=== PATIENT | female | born 1985 | race Caucasian/White ===

== ENCOUNTER 2019-11-12 23:22 | Emergency (ER) | payer OTHER ==
[~2019-11-12] VITALS: Ht 167.6 cm; Wt 48.0 kg
--- NOTE | 2019-11-12 23:56 | EKG ---
[address] [address] Test Date: 2019-11-12 Test Time: 23:49:58 Pat Name: EMMETT JUARES Department: Room: Gender: F Hims Coder: : [id number] Requested By: MEGHAN CULP Order Number: [id number] Reading MD: Measurements Intervals [place] Rate: 108 P: 90 AR: 126 QRS: 79 QRSD: 86 T: 63 QT: 350 QTc: 473 Interpretive Statements SINUS TACHYCARDIA NO SPECIFIC ECG ABNORMALITIES RI6.01 No previous ECG available for comparison
[2019-11-13 00:15] LABS: BASO # 0.1 x10^3/uL (0.0-0.2); BASO % 1 % (0-3); EOS # 0.4 x10^3/uL (0.0-0.7); EOS % 5 % (0-3); HEMATOCRIT 33.3 % (36.0-47.0); HEMOGLOBIN 11.1 g/dL (12.0-15.5); LYMPH # 2.4 x10^3/uL (1.0-4.8); LYMPH % 28 % (24-48); MEAN CORPUSCULAR HEMOGLOBIN 28 pg (25-35); MEAN CORPUSCULAR HGB CONC 33 g/dL (31-37); MEAN CORPUSCULAR VOLUME 83 fL (79-100); MONO # 0.5 x10^3/uL (0.0-1.1); MONO % 5 % (0-9); NEUT # 5.1 x10^3uL (1.8-7.7); NEUT % 61 % (31-73); PLATELET COUNT 330 x10^3/uL (140-400); RED BLOOD COUNT 4.02 x10^6/uL (3.50-5.40); WHITE BLOOD COUNT 8.4 x10^3/uL (4.0-11.0)
[2019-11-13 00:20] LABS: PREG TEST PT QUAL NEGATIVE (NEG)
[2019-11-13 00:21] LABS: CREATININE 0.7 mg/dL (0.6-1.0); POTASSIUM 3.6 mmol/L (3.5-5.1)
[2019-11-13 00:26] LABS: ALBUMIN 3.9 g/dL (3.4-5.0); ALBUMIN/GLOBULIN RATIO 1.4 (1.0-1.7); TOTAL BILIRUBIN 0.3 mg/dL (0.2-1.0); TOTAL PROTEIN 6.7 g/dL (6.4-8.2)
--- NOTE | 2019-11-13 00:37 | PHYS DOC ---
Past History Past Medical History: Endometriosis, Other Additional Past Medical Histor: endometriosis, tachycardia Additional Past Surgical Histo: endoscopic ablasions Alcohol Use: None Adult General Chief Complaint Chief Complaint: ABDOMINAL PAIN HPI HPI Patient is a 33-year-old female who presents via EMS after reportedly having a syncopal episode. EMS reports that they were informed the patient has syncopal episodes whenever she is in severe pain. Patient has history of endometriosis and frequently has bouts of pain. She indicates that she does not have a mural painter or primary care provider because her care had taken her off of her health plan. Patient rates her pain to be a 10 out of 10. EMS did give patient a total of 100 g of fentanyl while in route.[] Review of Systems Review of Systems Constitutional: Denies fever or chills [] Respiratory: Denies cough or shortness of breath [] Cardiovascular: No additional information not addressed in HPI [] GI: Positive lower abdominal pain without vomiting or diarrhea [] : Denies dysuria or hematuria [] Neurologic: Positive headache without focal weakness or sensory changes [] All other systems were reviewed and found to be within normal limits, except as documented in this note. Allergies Allergies Allergies Coded Allergies Type Severity Reaction Last Updated Verified No Known Drug Allergies 11/12/19 No Physical Exam Physical Exam Constitutional: Well developed, well nourished, appears uncomfortable, non-toxic appearance. Report of pain is far out of proportion to physical findings. [] HENT: Normocephalic, with approximately 2 similar linear laceration noted to the forehead right at the line of the scalp, extending into subcutaneous tissue. Laceration is linear. bilateral external ears normal, oropharynx moist, no oral exudates, nose normal. [] Eyes: PERRLA, EOMI, conjunctiva normal, no discharge. [] Neck: The patient and c-collar upon arrival. [] Cardiovascular:Heart rate regular rhythm, no murmur [] Lungs & Thorax: Bilateral breath sounds clear to auscultation [] Abdomen: Bowel sounds normal, soft, with lower abdominal reported tenderness on palpation. [] Skin: Warm, dry, no erythema, no rash. [] Extremities: No tenderness, no cyanosis, no clubbing, ROM intact, no edema. [] Neurologic: Alert and oriented X 3, no focal deficits noted. [] Current Patient Data Vital Signs Vital Signs Date Time Temp Pulse Resp B/P (MAP) Pulse Ox O2 Delivery O2 Flow Rate FiO2 11/13/19 00:29 98.2 97 20 115/64 (81) 97 Room Air Lab Results Laboratory Tests Test 11/12/19 23:58 11/13/19 00:04 White Blood Count 8.4 x10^3/uL (4.0-11.0) Red Blood Count 4.02 x10^6/uL (3.50-5.40) Hemoglobin 11.1 g/dL (12.0-15.5) L Hematocrit 33.3 % (36.0-47.0) L Mean Corpuscular Volume 83 fL (79-100) Mean Corpuscular Hemoglobin 28 pg (25-35) Mean Corpuscular Hemoglobin Concent 33 g/dL (31-37) Red Cell Distribution Width 13.0 % (11.5-14.5) Platelet Count 330 x10^3/uL (140-400) Neutrophils (%) (Auto) 61 % (31-73) Lymphocytes (%) (Auto) 28 % (24-48) Monocytes (%) (Auto) 5 % (0-9) Eosinophils (%) (Auto) 5 % (0-3) H Basophils (%) (Auto) 1 % (0-3) Neutrophils # (Auto) 5.1 x10^3uL (1.8-7.7) Lymphocytes # (Auto) 2.4 x10^3/uL (1.0-4.8) Monocytes # (Auto) 0.5 x10^3/uL (0.0-1.1) Eosinophils # (Auto) 0.4 x10^3/uL (0.0-0.7) Basophils # (Auto) 0.1 x10^3/uL (0.0-0.2) Sodium Level 141 mmol/L (136-145) Potassium Level 3.6 mmol/L (3.5-5.1) Chloride Level 107 mmol/L (98-107) Carbon Dioxide Level 26 mmol/L (21-32) Anion Gap 8 (6-14) Blood Urea Nitrogen 11 mg/dL (7-20) Creatinine 0.7 mg/dL (0.6-1.0) Estimated GFR (Cockcroft-Gault) 97.0 BUN/Creatinine Ratio 16 (6-20) Glucose Level 85 mg/dL (70-99) Calcium Level 8.0 mg/dL (8.5-10.1) L Total Bilirubin 0.3 mg/dL (0.2-1.0) Aspartate Amino Transferase (AST) 12 U/L (15-37) L Alanine Aminotransferase (ALT) 15 U/L (14-59) Alkaline Phosphatase 58 U/L (46-116) Total Protein 6.7 g/dL (6.4-8.2) Albumin 3.9 g/dL (3.4-5.0) Albumin/Globulin Ratio 1.4 (1.0-1.7) Serum Test, Qualitative Negative (NEG) Glucose (Fingerstick) 79 mg/dL (70-99) EKG EKG [] Radiology/Procedures Radiology/Procedures [] Impressions: PROCEDURE: CT HEAD AND CERVICAL SPINE WO CT HEAD AND CERVICAL SPINE WO Date: 11/13/2019 1:07 AM Clinical Indication: Syncope, fall, head and neck injury, pain Comparison: None. Technique: 5 mm axial tomographic images were obtained of the head without contrast. These were viewed on brain and bone windows. CT imaging of the cervical spine was performed without contrast. Coronal and sagittal reformatted images were performed. One or more of the following dose reduction techniques were utilized: Automated exposure control (AEC), Adjustment of mA and/or kV according to patient size, Use of iterative reconstruction technique such as ASiR, CT scan done according to ALARA and image gently/image wisely HEAD FINDINGS: The brain parenchyma is normal in attenuation. No intra- or extra-axial mass or fluid collection. No acute hemorrhage. The ventricles are normal in size, shape, and morphology. The escalona-white matter junction is normal. The basilar cisterns are patent. Ethmoid sinus mucosal thickening. The visualized portions of the orbits and globes are normal. The mastoid air cells are clear. No aggressive osseous lesion or fracture. CERVICAL SPINE FINDINGS: Motion artifact degrades image quality. Straightening of the cervical lordosis. No acute fracture. No aggressive lytic or blastic osseous lesion. The intervertebral disc heights are maintained. No high-grade spinal canal stenosis or neural foraminal narrowing. The thyroid gland is normal. No cervical lymphadenopathy. The visualized aerodigestive tract is unremarkable. The visualized lung apices are clear. IMPRESSION: 1. No acute intracranial process. 2. No acute osseous abnormality of the cervical spine. Electronically signed by: Lonny Desir MD (11/13/2019 1:36 AM) [id number] Course & Med Decision Making Course & Med Decision Making Pertinent Labs and Imaging studies reviewed. (See chart for details) Patient moved to room upon arrival was evaluated by ER medical staff after which blood work was drawn. Patient's wound on for head was evaluated by medical staff and wound was cleaned. Other than the very fine, linear laceration, no other external signs of trauma were noted to include no bruising or hematoma surrounding the wound, arousing suspicion that patient may have cut herself intentionally. Patient initially refused to go down for CT imaging, stating that she was nauseated. Patient was given nausea medication and then refused because she was in pain after receiving 100 g of fentanyl by EMS. Patient was informed that she would not receive any additional medication at this time. Patient indicated that she might as well go home and suffer at home and wait here. Patient was given option to sign out AGAINST MEDICAL ADVICE and elected to stay, threatening staff that she might pass out while down in imaging. Patient's imaging was uneventful. Findings were reviewed and no acute intracranial or bony abnormalities were noted. Patient's blood work reviewed and is unremarkable. Findings of workup have been reviewed with patient and cervical collar removed. Patient did request to speak with this physician regarding further treatment. Patient's blood pressure noted to be 92/44. I informed patient that she would not receive any further opiates. I did offer to treat patient's pain with Toradol as well as tramadol. Patient informed staff that Toradol made her sick and when I offered the tramadol, she laughed at me. She states that her dog takes tramadol. Patient continued to argue, stating that she never comes to this facility for pain medication. She indicates that she is not able to get into see a primary care provider or a specialist for management of her pain because has removed her from coverage. She states that she has been off of coverage from for 2 years now. Patient again informed that this facility does not treat chronic pain although offers had been made for the Toradol and tramadol which patient did not want. Of note, during initial evaluation and upon reviewing findings with patient, noted to be moaning and lying on her side; however, when patient began to argue about why she is not receiving additional medication, she demonstrated no signs of pain whatsoever. I did confront patient regarding this and she stated it was because she is angry. I also informed patient that she was demonstrating drug-seeking behavior. After discussion, patient ultimately was discharged home. Dragon Disclaimer Dragon Disclaimer This electronic medical record was generated, in whole or in part, using a voice recognition dictation system. Departure Departure: Impression: Primary Impression: Syncope Additional Impressions: Forehead laceration Head injury Chronic abdominal pain Drug-seeking behavior Disposition: HOME, SELF-CARE Condition: STABLE Referrals: PCP,NO (PCP) Patient Instructions: Chronic Pain, Chronic Pain Management, Endometriosis, Head Injury, Adult, Laceration Care, Adult, Syncope Problem Qualifiers Primary Impression: Syncope Syncope type: unspecified Qualified Codes: R55 - Syncope and collapse Additional Impressions: Forehead laceration Encounter type: initial encounter Qualified Codes: S01.81XA - Laceration without foreign body of other part of head, initial encounter Head injury Encounter type: initial encounter Qualified Codes: S09.90XA - Unspecified injury of head, initial encounter MEGHAN CULP Jr. DO Nov 13, 2019 00:37
[2019-11-13] MEDS ORDERED: ONDANSETRON PF 4 MG/2 ML VIAL. IVP ONE (01:30)
--- NOTE | 2019-11-13 01:39 | RAD ---
CT HEAD AND CERVICAL SPINE WO Date: 11/13/2019 1:07 AM Clinical Indication: Syncope, fall, head and neck injury, pain Comparison: None. Technique: 5 mm axial tomographic images were obtained of the head without contrast. These were viewed on brain and bone windows. CT imaging of the cervical spine was performed without contrast. Coronal and sagittal reformatted images were performed. One or more of the following dose reduction techniques were utilized: Automated exposure control (AEC), Adjustment of mA and/or kV according to patient size, Use of iterative reconstruction technique such as ASiR, CT scan done according to ALARA and image gently/image wisely HEAD FINDINGS: The brain parenchyma is normal in attenuation. No intra- or extra-axial mass or fluid collection. No acute hemorrhage. The ventricles are normal in size, shape, and morphology. The escalona-white matter junction is normal. The basilar cisterns are patent. Ethmoid sinus mucosal thickening. The visualized portions of the orbits and globes are normal. The mastoid air cells are clear. No aggressive osseous lesion or fracture. CERVICAL SPINE FINDINGS: Motion artifact degrades image quality. Straightening of the cervical lordosis. No acute fracture. No aggressive lytic or blastic osseous lesion. The intervertebral disc heights are maintained. No high-grade spinal canal stenosis or neural foraminal narrowing. The thyroid gland is normal. No cervical lymphadenopathy. The visualized aerodigestive tract is unremarkable. The visualized lung apices are clear. IMPRESSION: 1. No acute intracranial process. 2. No acute osseous abnormality of the cervical spine. Electronically signed by: Lonny Desir MD (11/13/2019 1:36 AM) [id number]
[2019-11-13 02:00] LABS: BARBITURATES NEG (NEG); BENZODIAZEPINES POS (NEG); CANNABINOIDS NEG (NEG); COCAINE NEG (NEG); METHADONE NEG (NEG); OPIATES NEG (NEG); PHENCYCLIDINE NEG (NEG)
[2019-11-13] MEDS ORDERED: KETOROLAC 30 MG/ML VIAL. IVP ONE (02:00)
[2019-11-13 02:01] LABS: AMPHETAMINE/METHAMPHETAMINE NEG (NEG)
[2019-11-13 02:04] VITALS: BP 92/64
[2019-11-13 02:06] LABS: BACTERIA,URINE FEW /HPF (0-FEW); BILIRUBIN,URINE NEG (NEG); CLARITY,URINE HAZY; COLOR,URINE YELLOW; GLUCOSE,URINE NEG (NEG); NITRITE,URINE NEG (NEG); RBC,URINE 0 /HPF (0-2); SQUAMOUS EPITHELIAL CELL,UR OCC /LPF; UROBILINOGEN,URINE 0.2 mg/dL (0.2 mg/dL)
== END 2019-11-13 02:47 | disposition home or self-care (01) ==
LOC: ER 23:22
DX: S01.81XA Laceration without foreign body of other part of head, initial encounter (principal); R55 Syncope and collapse; G89.29 Other chronic pain; R10.30 Lower abdominal pain, unspecified; Z76.5 Malingerer [conscious simulation]; W18.39XA Other fall on same level, initial encounter; Y93.89 Activity, other specified; Y92.89 Other specified places as the place of occurrence of the external cause; Y99.8 Other external cause status
CPT/HCPCS: 36415; 70450; 72125; 80053; 80307; 81001; 82947; 84703; 85025; 87086; 93005; 96374; 99285; J2405

== ENCOUNTER 2019-11-14 03:52 | Emergency (ER) | payer OTHER ==
[~2019-11-14] VITALS: Ht 167.6 cm; Wt 48.0 kg
[2019-11-14 03:52] VITALS: BP 132/68
--- NOTE | 2019-11-14 05:02 | PHYS DOC ---
Past History Past Medical History: Endometriosis, Other Additional Past Medical Histor: tachycardia Additional Past Surgical Histo: endoscopic ablasions Alcohol Use: None Adult General Chief Complaint Chief Complaint: WOUND CHECK HPI HPI Patient is a 33-year-old female who presents with deep laceration to her forehead. Patient was seen here last night after reportedly having a syncopal episode, striking her head and lacerating her scalp/forehead. Patient and I had elected for closure of wound with Dermabond given the location of the wound at the border of the scalp due to difficulty seeing sutures amongst the hairs and better cosmesis then kacy. Patient states that she woke up this morning with the wound having split open. When asked where all the wound adhesive was from the wound, she states that her pillow must of pulled it off. She denies any repeat injury to forehead.[] Review of Systems Review of Systems Constitutional: No reported fever or chills [] Respiratory: No reported cough or shortness of breath [] Cardiovascular: No additional information not addressed in HPI [] Integument: Positive wound dehiscence[] Allergies Allergies Allergies Coded Allergies Type Severity Reaction Last Updated Verified No Known Drug Allergies 11/12/19 No Physical Exam Physical Exam Constitutional: Well developed, well nourished, no acute distress, non-toxic ap pearance. [] HENT: Normocephalic, with 2 cm linear laceration to left forehead at margin of scalp with very sharp margins, extending into subcutaneous tissue. Very small residue of Dermabond is noted to the hair just above the wound but no residue of Dermabond left on the skin. [] Eyes: PERRLA, EOMI, conjunctiva normal, no discharge. [] Skin: 2 cm laceration as noted above. [] Neurologic: Alert and oriented X 3, no focal deficits noted. [] Current Patient Data Vital Signs Vital Signs Date Time Temp Pulse Resp B/P (MAP) Pulse Ox O2 Delivery O2 Flow Rate FiO2 11/14/19 03:52 98.2 87 18 132/68 (89) 100 Room Air EKG EKG [] Radiology/Procedures Radiology/Procedures [] Course & Med Decision Making Course & Med Decision Making Pertinent Labs and Imaging studies reviewed. (See chart for details) Patient was moved to room upon arrival and wound evaluated. Patient had requested a different provider repair wound; however, no other providers available at this time. Patient tearful, stating that she did not want me to touch her; however, she indicated that she didn't really have any other choice. At this time, patient stated that she told me that she did not want Dermabond in the first place. This was not a concern that patient relayed during her care last evening. Last evening, patient had indicated that she didn't care how it was repaired. Of note, the nurse who had triage the patient had the initial impression that patient had peeled the Dermabond off herself and had asked the patient had she done that. Patient's wound certainly appears consistent with patient having done just that, with no residue of Dermabond left on the skin. repair supervisor was contacted and came down to discuss patient's concern with the care that she had received last night. I did explain at length with patient that sometimes wounds of this age are not amenable to closure and often require healing by second intention, which was explained as the wound healing on the inside and out. Patient did agree to closure with sutures. During wound closure, patient did repeatedly move her head, at times making repair difficult. Patient did require more lidocaine than anticipated for adequate anesthesia, which was repeatedly tested by touching the end of the needle against her skin, at an angle. While anesthetizing patient, patient did inquire if she was demonstrating drug-seeking behavior by indicating that she needed further anesthesia. I reported the patient that that was not the case in my opinion. Laceration Repair by me: Anesthesia: 1% with epinephrine lidocaine locally Location: Left forehead at border of scalp Tendon/Joint/Nerves: No injury Foreign body: None detected after copious irrigation and exploration Technique: A total of 6 Simple Interrupted Sutures were placed utilizing 5-0 Ethilon suture material with 5 square knots displaced per suture Complexity: No subcutaneous sutures/mucosal repair/edge excision Post Closure Length: 2 cm Patient's bleeding was easily controlled in the department and there is no indication of anemia. No evidence of compartment syndrome, neurologic injury, vascular injury, open joint, tendon laceration, or foreign body. Patient is appropriate for outpatient follow up. 48 hour wound check. Scar minimization instructions given. Dragon Disclaimer Dragon Disclaimer This electronic medical record was generated, in whole or in part, using a voice recognition dictation system. Departure Departure: Impression: Primary Impression: Laceration of forehead Disposition: HOME, SELF-CARE Condition: STABLE Referrals: PCP,NO (PCP) Patient Instructions: Facial Laceration Additional Instructions: Patient instructed to return for suture removal in 5-7 days. Problem Qualifiers Primary Impression: Laceration of forehead Encounter type: initial encounter Qualified Codes: S01.81XA - Laceration without foreign body of other part of head, initial encounter MEGHAN CULP Jr. DO Nov 14, 2019 05:02
== END 2019-11-14 05:10 | disposition home or self-care (01) ==
LOC: ER 03:52
DX: S01.81XD Laceration without foreign body of other part of head, subsequent encounter (principal); X58.XXXD Exposure to other specified factors, subsequent encounter
CPT/HCPCS: 12011; 99282